=== PATIENT | female | born 1955 | race Caucasian/White ===

== ENCOUNTER 2022-10-28 08:00 | Outpatient (NON) | payer MEDICARE, OTHER, SELFPAY | END 2022-10-28 08:01 | disposition home or self-care (01) | LOC: ANHLAB 10-29 12:29 | PROVIDERS: Visit Provider Nurse Practitioner | DX: D49.2 Neoplasm of unspecified behavior of bone, soft tissue, and skin (principal); L30.8 Other specified dermatitis | CPT/HCPCS: 88305 ==